=== PATIENT | female | born 1955 | race Caucasian/White ===

== ENCOUNTER 2023-08-16 16:05 | Inpatient (IN) | payer MEDICARE ==
[~2023-08-16] VITALS: Ht 157.5 cm; Wt 90.7 kg
[2023-08-16] MEDS ORDERED: SODIUM CHLORIDE 0.9% 250ML 250 ML IV ONE (16:15)
[2023-08-16 18:15] LABS: BASOPHILS % 0.9 % (0.0-1.0); EOSINOPHILS # (AUTO) 0.2 (0.0-0.4); EOSINOPHILS % 3.7 % (0.0-6.0); LYMPHOCYTES # (AUTO) 1.2 (1.0-3.2); LYMPHOCYTES % 28.6 % (18.0-39.1); MEAN CORPUSCULAR HEMOGLOBIN 19.4 pg (28-32); MEAN CORPUSCULAR HGB CONC 26.1 g/dL (31-35); MEAN CORPUSCULAR VOLUME 74.2 fL (81-99); MONOCYTES # (AUTO) 0.4 (0.2-0.8); MONOCYTES % 8.4 % (4.4-11.3); NEUTROPHILS # (AUTO) 2.5 (2.1-6.9); NEUTROPHILS % 58.2 % (38.7-80.0); PLATELET COUNT 155 x10e3/uL (140-360); RED BLOOD COUNT 2.79 x10e6/uL (3.6-5.1); RED CELL DISTRIBUTION WIDTH 19.5 % (11.7-14.4); WHITE BLOOD COUNT 4.27 x10e3/uL (4.8-10.8)
[2023-08-16 18:17] LABS: HEMATOCRIT 20.7 % (34.2-44.1); HEMOGLOBIN 5.4 g/dL (12.0-16.0)
[2023-08-16] MEDS ORDERED: ONDANSETRON HCL INJ 2MG/ML 2ML 2 MG/ML VIAL IV PRN ×2 (18:30→20:00)
[2023-08-16 18:31] LABS: ALBUMIN 3.1 g/dL (3.5-5.0); ALBUMIN/GLOBULIN RATIO 1.3 (0.8-2.0); BILIRUBIN,TOTAL 0.8 mg/dL (0.2-1.2); CALCIUM 8.4 mg/dL (8.4-10.2); CREATININE, SERUM 0.94 mg/dL (0.57-1.11); TOTAL PROTEIN 5.5 g/dL (6.5-8.1)
[2023-08-16] MEDS ORDERED: IOPAMIDOL 370 MG/ML 100 ML INFUS..BTL INJ ONE (18:40)
[2023-08-16] MEDS ORDERED: SODIUM CHLORIDE 0.9% 100 ML ONE (18:40)
[2023-08-16 18:54] LABS: TROPONIN I 0.008 ng/mL (0-0.300)
[2023-08-16] MEDS ORDERED: SODIUM CHLORIDE 0.9% 250ML 250 ML ONE ×2 (19:49→23:44)
[2023-08-16] MEDS ORDERED: HYDRALAZINE HCL 20 MG/ML VIAL IV PRN (20:00)
[2023-08-16] MEDS ORDERED: ACETAMINOPHEN 325 MG TAB PO PRN (20:00)
[2023-08-16 20:21] LABS: % IRON SATURATION 4 % (15-50); IRON 21 ug/dL (50-170); TOTAL IRON BINDING CAPACITY 500 ug/dL (261-478); TRANSFERRIN 357 mg/dL (180-382)
[2023-08-16 20:30] VITALS: PULSE 67; RESP 18; O2SAT 100
[2023-08-16] MEDS ORDERED: ATORVASTATIN CA80 MG (22:03)
[2023-08-16] MEDS ORDERED: FUROSEMIDE20 MG (22:03)
[2023-08-16] MEDS ORDERED: PREGABALIN100 MG (22:03)
[2023-08-16] MEDS ORDERED: MAGNESIUM OXID400 M1 (22:03)
[2023-08-16] MEDS ORDERED: AIRSUPRA 90-810.7 GM (22:03)
[2023-08-16] MEDS ORDERED: SPIRONOLACTONE25 MG PO (22:03)
[2023-08-16] MEDS ORDERED: ATIVAN1 MG (22:03)
[2023-08-16 22:05] VITALS: BP 144/92; PULSE 78; RESP 18; TEMP 97.2; O2SAT 98
[2023-08-17] VITALS (7 sets, daily range): BP systolic 128–156; BP diastolic 70–92; PULSE 63–78; RESP 16–20; TEMP 97.2–98; O2SAT 96–100
[2023-08-17 05:37] LABS: BASOPHILS % 0.7 % (0.0-1.0); EOSINOPHILS # (AUTO) 0.2 (0.0-0.4); EOSINOPHILS % 5.1 % (0.0-6.0); HEMATOCRIT 23.2 % (34.2-44.1); HEMOGLOBIN 6.8 g/dL (12.0-16.0); LYMPHOCYTES # (AUTO) 1.2 (1.0-3.2); LYMPHOCYTES % 29.2 % (18.0-39.1); MEAN CORPUSCULAR HEMOGLOBIN 21.6 pg (28-32); MEAN CORPUSCULAR HGB CONC 29.3 g/dL (31-35); MEAN CORPUSCULAR VOLUME 73.7 fL (81-99); MONOCYTES # (AUTO) 0.4 (0.2-0.8); MONOCYTES % 10.8 % (4.4-11.3); NEUTROPHILS # (AUTO) 2.2 (2.1-6.9); PLATELET COUNT 135 x10e3/uL (140-360); RED BLOOD COUNT 3.15 x10e6/uL (3.6-5.1); RED CELL DISTRIBUTION WIDTH 18.7 % (11.7-14.4); WHITE BLOOD COUNT 4.08 x10e3/uL (4.8-10.8)
[2023-08-17 06:52] LABS: ALBUMIN 2.8 g/dL (3.5-5.0); ALBUMIN/GLOBULIN RATIO 1.3 (0.8-2.0); ANION GAP 10.9 mmol/L (8-16); BILIRUBIN,TOTAL 1.1 mg/dL (0.2-1.2); CREATININE, SERUM 0.83 mg/dL (0.57-1.11); POTASSIUM 3.9 mmol/L (3.5-5.1)
[2023-08-17 07:17] LABS: FOLATE 9.6 ng/mL (7.0-15.4)
[2023-08-17 07:45] LABS: TROPONIN I 0.007 ng/mL (0-0.300)
[2023-08-17] MEDS ORDERED: IRON SUCROSE 100 MG in SODIUM CHLORIDE 0.9% 100 ML IV SCH (09:00)
[2023-08-17 11:52] LABS: HEMATOCRIT 23.9 % (34.2-44.1); HEMOGLOBIN 6.9 g/dL (12.0-16.0)
[2023-08-17] MEDS ORDERED: SODIUM CHLORIDE 0.9% 250ML 250 ML IV ONE (12:15)
[2023-08-17 14:39] LABS: TROPONIN I 0.007 ng/mL (0-0.300)
[2023-08-17] MEDS ORDERED: SODIUM CHLORIDE 0.9% 250ML 250 ML ONE (16:05)
[2023-08-17] MEDS ORDERED: PROTONIX20 MG PO (17:11)
== END 2023-08-17 20:00 | disposition home or self-care (01) | DRG 812 ==
LOC: ER 16:30 → ERHOLD 18:17 → MED/SURG 21:36
PROVIDERS: ADMIT Internal Medicine; ATTEND Internal Medicine
PROC: 30233N1 Transfusion of Nonautologous Red Blood Cells into Peripheral Vein, Percutaneous Approach (ICD-10-PCS; principal; 2023-08-16)
DX: D62 Acute posthemorrhagic anemia (principal); I48.20 Chronic atrial fibrillation, unspecified; I12.9 Hypertensive chronic kidney disease with stage 1 through stage 4 chronic kidney disease, or unspecified chronic kidney disease; Z96.652 Presence of left artificial knee joint; E78.00 Pure hypercholesterolemia, unspecified; N18.31 Chronic kidney disease, stage 3a; J44.9 Chronic obstructive pulmonary disease, unspecified; K57.90 Diverticulosis of intestine, part unspecified, without perforation or abscess without bleeding; Z20.822 Contact with and (suspected) exposure to COVID-19; Z87.891 Personal history of nicotine dependence
CPT/HCPCS: 36415; 74174; 80053; 82550; 82607; 82746; 83540; 83880; 84466; 84484; 85014; 85018; 85025; 86850; 86900; 86920; 93005; 94799; 99284; J1756; J7050; P9016; Q9967; U0002